=== PATIENT | female | born 1980 ===

== ENCOUNTER 2018-02-07 05:40 | Inpatient (IN) | payer MEDICAID ==
[2018-02-07 06:26] VITALS: BMI 33.8
[2018-02-07] MEDS ORDERED: Lactated Ringer's 1,000 ML IV SCH ×2 (06:45)
--- NOTE | 2018-02-07 06:59 | OBHP ---
Datetime: 02/07/2018 06:44 IP Adm Impression: Term, intrauterine ; Active labor; Intact Membranes IP Admit Plan: Admit to unit; Initiate labor protocol Admit Comment, IP Provider: Patient is a 37 y.o. , LMP 05/06/17, KASIA 02/10/18, EGA 39w 4d, c/o Ctx 0300 hours, pain scale 6/10. (+) AFM; denies LOF, VB. care: [facility], Advanced matern al age P Ob: X 3: all at [facility]: 2005, female, 7 1/2lb; 2012, male, 8 1/2 lb; 2016, female, 8+lb; no complications. Spont ab x 3, 1998, 2 in 2013, all apprx 4-6 weeks, no D_C. VTOP x 2, 2002, 2008 - with D_C; no complications. 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 Denies H/O STIs, abnormal Pap, myomata or ovarian cysts. PMH: denies PSH: D_C x 2 NKDA Meds: PNV - QD Soc Hx: denies tobacco, illicit drug or EtOH use. since 2013; together since 2012. Fam Hx: Mother alive 63 y.o. Father alive 62 y.o. - both, no med issues. No fam h/o cancer P.E.: as above. WD; uncomfortable with contractions. Awake, alert, oriented to time, person and pl hugh. Pleasant and cooperative. present. Assessment: 37 y.o. [id number], 39w 4d, active labor. GBS (-). CAtegory 1 tracing. Clinically stable. Plan: 1) Admit 2) NPO 3) IVFs 4) Admission labs 5) Continuous EFM 6) Anticipate vaginal delivery - case endorsed to oncoming Attending Pelvic Type - PN: Adequate Extremities - PN: Normal Abdomen - PN: Normal Back - PN: Normal Breast - PN: Not Done Lungs - PN: Normal Heart - PN: Normal Thyroid - PN: Normal Neurologic - PN: Normal HEENT - PN: Normal General - PN: Normal Weight - Estimated: 3973 Presentation-Admit: Vertex FHR - Baseline A Provider: 140 Contraction Comments Provider: 4 Comments, ACOG Physical Exam: Abdomen: gravid. Sot. Firm with contractions. Fundal height 39 cm All other systems reviewed and are negative Gestation - Est Wks by US: 39w 4d IP Hx Assessment: The History has been Reviewed and is Current EGA AdmitDate IP: 39.4 IP Indication for Induction: Not Applicable IP Chief Complaint: Uterine contractions NICHD Variability Prov Fetus A: Moderate 6-25bpm NICHD Accel Fetus A IP Provider: 10X10 FHR Category Provider Fetus A: Category I NICHD Decel Fetus A IP Provider: None Dilatation, Provider: 5 Effacement, Provider: 100 Station, Provider: -1 Genitourinary Exam: Normal DTRs - PN: Not Done
--- NOTE | 2018-02-07 07:17 | OBPN ---
Datetime: 02/07/2018 07:14 IP Procedures Other: 7:14am. Fluid clear IP Progress Impression: Normal progression of labor; Reactive non-stress test; Rupture of membranes IP Informed Consent Obtain: Vaginal Delivery; Risks, Benefits and Alternatives Discussed IP Procedures: Artificial ROM IP Progress Plan: Continue present management; Anticipate Vaginal Delivery Membranes, Provider: Ruptured Amniotic Fluid Color, Provider: Clear Contraction Comments Provider: Q3-4 FHR - Baseline A Provider: 150 Gestation - Est Wks by US: 39.0 Presentation-Admit: Vertex IP Progress Note Comment: PT arom @ 7:14am. fluid clear. SVE 6/100/0 NICHD Accel Fetus A IP Provider: 15X15 NICHD Variability Prov Fetus A: Moderate 6-25bpm Dilatation, Provider: 6 Effacement, Provider: 100 Station, Provider: 0 NICHD Decel Fetus A IP Provider: None Datetime: 02/07/2018 06:44 Weight - Estimated: 3973 FHR Category Provider Fetus A: Category I
[2018-02-07 07:23] LABS: BASO % 0.4 % (0.0-2.0); EOS # 0.1 K/uL (0.0-0.7); EOS % 0.8 % (0.0-4.0); HEMOGLOBIN 11.4 g/dL (11.0-16.0); LYMPH # 2.1 K/uL (1.0-4.3); LYMPH % 26.1 % (20.0-40.0); MEAN CELL VOLUME 81.9 fL (81.0-99.0); MEAN CORPUSCULAR HEMOGLOBIN 27.7 pg (27.0-31.0); MEAN CORPUSCULAR HGB CONC 33.8 g/dL (33.0-37.0); MEAN PLATELET VOLUME 9.2 fL (7.2-11.7); MONO # 0.7 K/uL (0.0-0.8); MONO % 9.1 % (0.0-10.0); NEUT % 63.6 % (50.0-75.0); NRBC % 0.1 % (0.0-2.0); RBC 4.13 Mil/uL (3.80-5.20); RED CELL DISTRIBUTION WIDTH 16.5 % (11.5-14.5); WHITE BLOOD COUNT 7.9 K/uL (4.8-10.8)
[2018-02-07 07:31] LABS: SQUAMOUS EPITHIAL 5 /hpf (0-5); URINE BILIRUBIN NEGATIVE (NEGATIVE); URINE BLOOD NEGATIVE (NEGATIVE); URINE CLARITY Hazy (Clear); URINE COLOR Yellow (YELLOW); URINE GLUCOSE (UA) NORMAL (Normal); URINE LEUKOCYTE ESTERASE 1+ Leu/uL (Negative); URINE PROTEIN NEGATIVE (NEGATIVE); URINE UROBILINOGEN NORMAL mg/dL (0.2-1.0)
[2018-02-07 08:04] LABS: ALB/GLOB RATIO 0.9 (1.0-2.1); ALBUMIN 3.4 g/dL (3.5-5.0); ALT/SGPT 26 U/L (9-52); AST/SGOT 28 U/L (14-36); BLOOD UREA NITROGEN 14 mg/dL (7-17); CALCIUM 8.7 mg/dl (8.6-10.4); GFR AFRICAN-AMERICAN > 60; GFR NON-AFRICAN AMERICAN > 60
[2018-02-07] MEDS ORDERED: Oxytocin 30 UNIT 30 UNITS/500 ML BAG IV SCH (08:15)
[2018-02-07] MEDS ORDERED: Oxycodone/Acetaminophen 5/325 mg Tab PO PRN (08:30)
[2018-02-07] MEDS ORDERED: Benzocaine/Menthol 20%-0.5% Topical Spray (60 ml) TOP PRN (08:30)
[2018-02-07] MEDS ORDERED: Varicella Virus Vaccine Inj SC ONE (09:00)
[2018-02-07] MEDS ORDERED: Tdap Vaccine 0.5 ml Vial (10-64 yrs) IM ONE (09:00)
[2018-02-07] MEDS: Multiple Vitamins Tab PO SCH (11:16)
--- NOTE | 2018-02-07 21:26 | OBDS ---
DELIVERY PERSONNEL Delivery Doctor: dr butler Hose Inspector: Alex Sultanabharath RN MATERNAL INFORMATION Delivery Anesthesia: None Medications in Delivery: pitocin 20 Estimated Blood Loss (ml): 200 Placenta Cultured: No Maternal Complications: None Provider Comments: PT delivered viable male infant over an intact perineum. The head delivered atrau matically. The anterior and posterior shoulder delivered. No nucal cord. The cord was cut clamped and the fetus handed to peds. The placenta delivered intact with 3 vessel cord. Bimanual massage perform ed. Hemostasis was judged to be excellent. All sponge needle and instrument count was noted to be cor rect at the end of the procedure. LABOR SUMMARY EDC: 02/10/2018 00:00 No. Babies in Womb: 1 Attempted: No Labor Anesthesia: None LABOR INFORMATION Oxytocin: N/A Group B Beta Strep: Negative Steroids Given: None Reason Steroids Not Administered: Not Applicable MEMBRANES Membranes Rupture Method: Spontaneous Rupture of Membranes: 02/07/2018 07:21 Length of Rupture (hrs): 0.47 Amniotic Fluid Color: Clear Amniotic Fluid Amount: Moderate Amniotic Fluid Odor: Normal STAGES OF LABOR Stage 3 hrs: 0 Stage 3 min: 4 VAGINAL DELIVERY Episiotomy: None Laceration Extension: N/A Laceration Type: None Initial Vag Sponge Count: 11 Final Vag Sponge Count: 11 Initial Vag Sharps Count: 0 Final Vag Sharps Count: 0 Sponge Count Correct: Yes Sharps Count Correct: Yes BABY A INFORMATION Delivery Date/Time: 02/07/2018 07:49 Method of Delivery: Vaginal Born in Route : No : N/A Forceps: N/A Vacuum Extraction: N/A Shoulder Dystocia : No SHOULDER DYSTOCIA BABY A Delivery Date/Time: 02/07/2018 07:49 PRESENTATION/POSITION BABY A Presentation: Cephalic Cephalic Presentation: Vertex Vertex Position: Right Occipital Anterior Breech Presentation: N/A PLACENTA INFORMATION BABY A Placenta Delivery Time : 02/07/2018 07:53 Placenta Method of Delivery: Spontaneous Placenta Status: Delivered SCORES BABY A Heart Rate 1 min: >100 bpm Resp Effort 1 min: Good Cry Reflex Irritability 1 min: Cough or Sneeze or Pulls Away Muscle Tone 1 min: Active Motion Color 1 min: Body Clutier, Extremities Blue Resuscitation Effort 1 min: Tactile Stimulation SCORE 1 MIN: 9 Heart Rate 5 min: >100 bpm Resp Effort 5 min: Good Cry Reflex Irritability 5 min: Cough or Sneeze or Pulls Away Muscle Tone 5 min: Active Motion Color 5 min: Body Clutier, Extremities Blue Resuscitation Effort 5 min: N/A SCORE 5 MIN: 9 INFORMATION BABY A Gestational Age at Delivery: 39.4 Gestational Status: Term Infant Outcome : Liveborn Condition : Stable Sex: Male IDENTIFICATION/MEDS BABY A ID Band Number: [id number] Sensor Number: [id number] WEIGHT/LENGTH BABY A Birthweight (gms): 3835 Infant Weight (lb): 8 Infant Weight (oz): 7 Infant Length Inches: 20.00 Length cms: 50.8 CORD INFORMATION BABY A No. Cord Vessels: 3 Nuchal Cord : N/A Cord Blood Taken: Yes Infant Suction: Mouth; Nose ASSESSMENT BABY A Complications: None Physical Findings at Delivery: Within Normal Limits Respirations: Appears Normal Service Dispatcher/ALS Called : No Care By: Jennifer Fraser RN Transferred To: Remains with Mother
[2018-02-08] MEDS: Multiple Vitamins Tab PO SCH (09:17)
--- NOTE | 2018-02-08 16:35 | OBPPN ---
Datetime: 02/08/2018 08:10 PP Pain Prov: Within normal limits PP Nausea Prov: Denies PP Flatus Prov: No PP BM Prov: No PP Heart Prov: Normal PP Lungs Prov: Normal PP Abdomen/Uterus Prov: Normal PP Lochia Prov: Normal PP Vulva/Perineum Prov: Normal PP Extremities Prov: Normal PP C/S Incision Prov: Not Applicable PP Progress Prov: Normal PP Comments Phys Exam Prov: Fundus firm below umbilicus No clubbing, cyanosis, edema; no calf tenderness PP Impression Prov: Normal progression PP Plan Prov: Continue present management PP Progress Note Prov: Patient seen and examined at bedside. Per nursing no acute events overnight. Patient is doing well, Lochia is moderate. Ambulating and tolerating diet. Urinating without difficul ty. No flatus or BM yet. Breast feeding. Denies headaches, dizziness, cp, palpitations, sob, urinary symptoms VS: 93/52 78 97.4 Gen: AAOx3 Abd: Soft, fundus firm below umbilicus Ext: No clubbing, cyanosis, edema; no calf tenderness Labs: 7.9>11.4/33.8<205 F/U am CBC O positive Rubella immune A/P: 37 y.o. at 39w4d s/p PPD#1 -Stable, afebrile -Pain control: Motrin prn -F/U am CBC -Encourage ambulation and hydration -Encourage -Male - declined circ -Continue routine care -Anticipate D/C home tomorrow -Plan discussed with Dr Theodore Nunez DO PGY-1 Vital Signs Provider PP: Reviewed
[2018-02-08 21:32] VITALS: O2SAT 99
[2018-02-09 07:22] LABS: BASO % 0.6 % (0.0-2.0); EOS # 0.1 K/uL (0.0-0.7); EOS % 1.6 % (0.0-4.0); HEMOGLOBIN 10.3 g/dL (11.0-16.0); LYMPH # 2.1 K/uL (1.0-4.3); LYMPH % 26.8 % (20.0-40.0); MEAN CELL VOLUME 82.7 fL (81.0-99.0); MEAN CORPUSCULAR HEMOGLOBIN 27.9 pg (27.0-31.0); MEAN CORPUSCULAR HGB CONC 33.8 g/dL (33.0-37.0); MEAN PLATELET VOLUME 8.9 fL (7.2-11.7); MONO # 0.5 K/uL (0.0-0.8); MONO % 6.4 % (0.0-10.0); NEUT # 5.1 K/uL (1.8-7.0); NEUT % 64.6 % (50.0-75.0); RBC 3.69 Mil/uL (3.80-5.20); RED CELL DISTRIBUTION WIDTH 18.6 % (11.5-14.5)
[2018-02-09 08:08] VITALS: BP 107/74; RESP 18; TEMP 97.6
[2018-02-09] MEDS: Multiple Vitamins Tab PO SCH (09:17)
--- NOTE | 2018-02-09 15:43 | OBPPN ---
Datetime: 02/09/2018 07:28 PP Pain Prov: Within normal limits PP Nausea Prov: Denies PP Flatus Prov: Yes PP BM Prov: Yes PP Impression Prov: Normal progression PP Plan Prov: Continue present management PP Progress Note Prov: Patient seen and examined at bedside. Per nursing no acute events overnight. Patient is doing well, pain is controlled. Lochia is mild. Ambulating and tolerating. Passing flatus and had a BM last night. Urinating without difficulty. Breast feeding. Denies headaches, dizziness, c p, palpitations, sob, urinary symptoms. VS: 100/59 76 97.3 Gen: AAOx3 Abd: Soft, fundus firm 1 fingerbreath above umbilicus Ext: No clubbing, cyanosis, edema; no calf tenderness Labs: 7.9>11.4/33.8<205 8.0>10.3/30.5<208 O positive Rubella immune A/P: 37 year old at 39w4d s/p PPD#2 -Stable, afebrile -Pain control: Motrin prn -Encourage ambulation and hydration -Encourage -Continue routine care -Anticipate discharge home today - pelvic rest x 6 weeks, f/u with clinic in 6 weeks -Plan discussed with Dr Aquiles Nunez DO PGY-1 Attending Note: patient seen and evaluated by me withthe resident. I agree with the above as do cumented. Patient interested in using condoms for contraception. Vital Signs Provider PP: Reviewed; Within Normal Limits
--- NOTE | 2018-02-09 15:45 | OBDCSUM ---
Datetime: 02/09/2018 12:34 Discharged to, Provider: Home Follow up at, Provider: [facility] Disch Instr Activity: Normal activity Disch Instr Diet: Regular Discharge Instructions, Provider: Routine instructions given Discharge Diagnosis, Provider: Term Delivered Discharge Time: 02/09/2018 11:35 Follow up in weeks, Provider: march 21 Disch Referrals: None Contraception discussed, Prov: Yes Disch Activity Restrictions: No exercising; No lifting; No driving; Minimize walking; Minimize stair -climbing; No sexual activity; Nothing in vagina - [place], tampons, douche Discharge Diagnosis Prov Other: Grand multiparity Advanced maternal age Acute blood loss anemia Contraception counseling Contraception after Delivery: Foam/Condoms Datetime: 02/09/2018 07:41 Discharged to, Provider: Home Follow up at, Provider: [facility] U[facility] Disch Instr Activity: Normal activity Disch Instr Diet: Regular Discharge Instructions, Provider: Routine instructions given Discharge Diagnosis, Provider: Term Delivered Discharge Time: 02/09/2018 08:30 Follow up in weeks, Provider: 6 weeks Disch Referrals: None Contraception discussed, Prov: Yes Disch Activity Restrictions: No sexual activity; Nothing in vagina - [place], tampons, douche Discharge Comment, Provider: Pelvic rest x 6 weeks, Motrin or Tyelnol prn pain Contraception after Delivery: Foam/Condoms
[2018-02-09 18:26] VITALS: PULSE 85
== END 2018-02-09 14:24 | disposition home or self-care (01) | DRG 373 ==
LOC: C.EROB 05:40 → UNDOADMIN 06:30 → C.4D 06:30 → C.4M 09:57
PROVIDERS: ADMIT Obstetrics & Gynecology; ATTEND Obstetrics & Gynecology
PROC: 10E0XZZ Delivery of Products of Conception, External Approach (ICD-10-PCS; principal; 2018-02-07)
DX: O99.02 Anemia complicating childbirth (principal); D62 Acute posthemorrhagic anemia; Z3A.39 39 weeks gestation of pregnancy; Z37.0 Single live birth